=== PATIENT | male | born 1960 | race Two or more races ===

== ENCOUNTER 2018-09-08 14:20 | Outpatient (CLI) | payer OTHER | END 2018-09-08 15:00 | disposition home or self-care (01) | LOC: NUCLEAR 14:20 | DX: M81.0 Age-related osteoporosis without current pathological fracture (principal) ==

== ENCOUNTER 2019-06-12 09:50 | Outpatient (CLI) | payer OTHER | END 2019-06-12 09:54 | disposition home or self-care (01) | LOC: NUCLEAR 09:50 | DX: R07.89 Other chest pain (principal); I10 Essential (primary) hypertension; I82.493 Acute embolism and thrombosis of other specified deep vein of lower extremity, bilateral ==

== ENCOUNTER 2020-01-20 08:05 | Outpatient (CLI) | payer OTHER | END 2020-01-20 08:17 | disposition home or self-care (01) | LOC: RAD 08:05 | DX: M54.5 Low back pain (principal) ==

== ENCOUNTER → 2022-07-09 | Emergency (ER) | payer OTHER ==
[~2022-07-09] VITALS: Ht 165.1 cm; Wt 69.4 kg
[~2022-07-09] MED LIST: COZAAR100 MG PO; FLONASE ALLERG9.9 ML NS; PREVACID30 MG PO; VISTARIL50 MG PO
== END | disposition home or self-care (01) ==
LOC: ER 11:21
DX: F41.9 Anxiety disorder, unspecified (principal)

== ENCOUNTER 2023-03-08 09:38 | Emergency (ER) | payer OTHER ==
[~2023-03-08] VITALS: Ht 167.6 cm; Wt 70.3 kg
[2023-03-08] MEDS ORDERED: PANTOPRAZOLE SO40 MG PO (10:10)
== END 2023-03-08 14:17 | disposition home or self-care (01) ==
LOC: ER 09:38
DX: F41.9 Anxiety disorder, unspecified (principal); I10 Essential (primary) hypertension